=== PATIENT | female | born 1995 | race Caucasian/White ===

== ENCOUNTER 2021-11-20 19:57 | Emergency (ER) | payer MEDICAID ==
[2021-11-20 20:40] VITALS: BP 132/80; PULSE 88
[2021-11-20] MEDS: Ketorolac 60 MG/2 ML SDV IM ONE (20:47)
[2021-11-20] MEDS ORDERED: traMADol 50 MG Tab ONE (21:00)
== END 2021-11-20 21:30 | disposition home or self-care (01) ==
LOC: LB.ED 19:57
DX: N83.201 Unspecified ovarian cyst, right side (principal)
CPT/HCPCS: 36415; 80053; 81001; 81025; 85025; 96372; 99284; A9270-GY; J1885